=== PATIENT | male | born 1950 | race African-American/Black ===

== ENCOUNTER 2016-10-17 10:32 | Emergency (ER) | payer OTHER ==
[~2016-10-17] VITALS: Ht 172.7 cm; Wt 127.0 kg
[~2016-10-17 10:32] MED LIST: ATENOLOL; CYCL-405 PO; LOSA25TA14 PO; NAPROSYN; PAX20 PO; SUCR1TAB35 PO; [UNRECOGNIZED DRUG - REMARK]
[2016-10-17 11:48] VITALS: BP 137/96
--- NOTE | 2016-10-17 12:11 | NUR ---
PATIENT TO BED 5 AT THIS TIME.
--- NOTE | 2016-10-17 12:22 | NUR ---
PATIENT PRESENTS TO ED WITH C/O SORE THROAT X 3 WKS HARD TO SWALLOW, NO PRODUCTIVE COUGH, FEELS "SWOLLEN TOUNGE";HX OF DM, HTN; DENIES N/V/D; SKIN IS PINK/WARM/DRY; AAOX4 WITH EVEN AND STEADY GAIT; LUNGS CLEAR BL; HR EVEN AND REGULAR; PT DENIES ANY FEVER, CP, SOB, OR COUGH AT THIS TIME; PATIENT STATES PAIN OF 8/10 AT THIS TIME; PATIENT POSITIONED FOR COMFORT; HOB ELEVATED; BEDRAILS UP X2; BED DOWN. ERMD AT BEDSIDE.
[2016-10-17 12:28] VITALS: BP 128/84
--- NOTE | 2016-10-17 12:29 | NUR ---
Patient discharged with v/s stable. Written and verbal after care instructions given and explained. Patient alert, oriented and verbalized understanding of instructions. Ambulatory with steady gait. All questions addressed prior to discharge. ID band removed. Patient advised to follow up with PMD. Rx of LIDOCAINE HYDROCHLORIDRE given. Patient educated on indication of medication including possible reaction and side effects. Opportunity to ask questions provided and answered.
== END 2016-10-17 12:29 | disposition home or self-care (01) ==
LOC: MED 10:32
DX: K12.0 Recurrent oral aphthae (principal); E11.9 Type 2 diabetes mellitus without complications; K21.9 Gastro-esophageal reflux disease without esophagitis; I10 Essential (primary) hypertension
CPT/HCPCS: 99283

== ENCOUNTER 2017-07-16 10:13 | Emergency (ER) | payer BC, MEDICAID ==
[~2017-07-16] VITALS: Ht 172.7 cm; Wt 110.8 kg
[2017-07-16 10:34] VITALS: BP 130/65
--- NOTE | 2017-07-16 10:39 | NUR ---
PT AMBULATES TO CHAIR C
--- NOTE | 2017-07-16 10:45 | NUR ---
67Y/M C/O LT SIDED HEAD ACHE AROUND 0300 THIS MORNING; DENIES DIZZINESS, NVD. PATIENT STATES PAIN OF 9/10 AT THIS TIME; VSS; PATIENT POSITIONED FOR COMFORT; ER MD MADE AWARE OF PT STATUS.
--- NOTE | 2017-07-16 11:00 | NUR ---
Patient being evaluated by physician at bedside.
[2017-07-16] MEDS ORDERED: KETOROLAC 60 MG/2 ML VIAL IM ONE (11:05)
[2017-07-16 11:55] VITALS: BP 124/86
--- NOTE | 2017-07-16 11:57 | NUR ---
Patient discharged with v/s stable. Written and verbal after care instructions given and explained. Patient alert, oriented and verbalized understanding of instructions. Ambulatory with steady gait. All questions addressed prior to discharge. ID band removed. Patient advised to follow up with PMD. Rx of TRAMADOL, MOTRIN given. Patient educated on indication of medication including possible reaction and side effects. Opportunity to ask questions provided and answered.
== END 2017-07-16 11:57 | disposition home or self-care (01) ==
LOC: MED 10:13
DX: R51 Headache (principal); E11.9 Type 2 diabetes mellitus without complications; K21.9 Gastro-esophageal reflux disease without esophagitis; I10 Essential (primary) hypertension
CPT/HCPCS: 70450; 96372; 99284; J1885

== ENCOUNTER 2017-09-18 16:27 | Emergency (ER) | payer MEDICAID, OTHER ==
[~2017-09-18] VITALS: Ht 172.7 cm; Wt 114.1 kg
[2017-09-18 16:33] VITALS: BP 128/89
--- NOTE | 2017-09-18 16:40 | NUR ---
PT AMBULATES TO BED 9, REPORT GIVEN TO KERA CAMILO
--- NOTE | 2017-09-18 16:45 | NUR ---
PT COMES TO ER WITH C/O SUDDEN ONSET OF SHARP PAIN TO LEFT OCCIPTAL AREA OF HEAD WHILE DOING NOTHING, PAIN IS NON RADIATING. PT STATES "I FEEL LIKE FAINTING" ALSO REPORTS INTERMITTENT BLURRY VISION. PT AAOX4, IN NAD. RESP EVEN AND UNLABORED, EATING CRACKERS AND DRINKING JUICE. ASYMPTOMATIC AT THIS TIME. SKIN W/D/I. DENIES INJURY/FEVERS/CHILLS. RESP EVEN AND UNLABORED, ON RA@99%. VSS.
[2017-09-18 17:05] VITALS: BP 128/89
--- NOTE | 2017-09-18 17:06 | NUR ---
Patient discharged with v/s stable. Written and verbal after care instructions given and explained. Patient verbalized understanding. Ambulatory with steady gait. All questions addressed prior to discharge. Advised to follow up with PMD.
== END 2017-09-18 17:06 | disposition home or self-care (01) ==
LOC: MED 16:27
DX: R51 Headache (principal); E11.9 Type 2 diabetes mellitus without complications; K21.9 Gastro-esophageal reflux disease without esophagitis; I10 Essential (primary) hypertension; I25.10 Atherosclerotic heart disease of native coronary artery without angina pectoris; Z79.899 Other long term (current) drug therapy
CPT/HCPCS: 99281

== ENCOUNTER 2019-03-02 14:59 | Emergency (ER) | payer OTHER ==
[~2019-03-02] VITALS: Ht 172.7 cm; Wt 127.0 kg
[~2019-03-02 14:59] MED LIST changes: -LOSA25TA14 PO; +LOSA25TA32 PO
[2019-03-02 15:03] VITALS: BP 157/83
--- NOTE | 2019-03-02 15:11 | NUR ---
PT AMBULATED TO BED 2
--- NOTE | 2019-03-02 15:13 | NUR ---
PATIENT PRESENTS TO ED WITH C/O LEFT HAND PAIN X2-3 MONTHS. DENIES TRAUMA OR INJURY. HURTS WITH MOVEMENT, UNABLE TO MAKE A FIST. PT TAKING HYDROCODONE FOR PAIN. MED HX: HTN, DM, CHRONIC BACK PAIN, HEARING LOSS, PATIENT STATES PAIN OF 10/10 AT THIS TIME; VSS; PATIENT POSITIONED FOR COMFORT; HOB ELEVATED; BEDRAILS UP X2; BED DOWN. ER MD MADE AWARE OF PT STATUS.
--- NOTE | 2019-03-02 16:00 | NUR ---
Patient being evaluated by DR. MARLOW at bedside.
[2019-03-02 16:15] VITALS: BP 142/80
--- NOTE | 2019-03-02 16:15 | NUR ---
Patient discharged BY DR. MARLOW, Written and verbal after care instructions given and explained. Rx of NAPROSYN given. Patient educated on indication of medication including possible reaction and side effects. All questions addressed prior to discharge. ID band removed. Patient advised to follow up with PMD.
== END 2019-03-02 16:15 | disposition home or self-care (01) ==
LOC: MED 14:59
DX: M79.641 Pain in right hand (principal); I25.10 Atherosclerotic heart disease of native coronary artery without angina pectoris; E11.9 Type 2 diabetes mellitus without complications; K21.9 Gastro-esophageal reflux disease without esophagitis; I10 Essential (primary) hypertension; Z79.899 Other long term (current) drug therapy
CPT/HCPCS: 99283

== ENCOUNTER 2020-03-13 13:06 | Emergency (ER) | payer OTHER, SELFPAY ==
[~2020-03-13] VITALS: Ht 172.7 cm; Wt 123.4 kg
[2020-03-13 13:17] VITALS: BP 126/78
--- NOTE | 2020-03-13 13:23 | NUR ---
JILL GARCIAS (DAUGHTER/SON) [phone]
--- NOTE | 2020-03-13 14:26 | NUR ---
Patient taken to xray.
--- NOTE | 2020-03-13 14:26 | NUR ---
Covid swab collected and walked to lab.
[2020-03-13 15:54] VITALS: BP 122/71
== END 2020-03-13 15:54 | disposition home or self-care (01) ==
LOC: MED 13:06
DX: U07.1 COVID-19 (principal); R53.83 Other fatigue; E11.9 Type 2 diabetes mellitus without complications; I10 Essential (primary) hypertension; I51.89 Other ill-defined heart diseases; K21.9 Gastro-esophageal reflux disease without esophagitis; Z79.899 Other long term (current) drug therapy
CPT/HCPCS: 71045; 93005; 99285; U0003

== ENCOUNTER 2020-03-19 20:07 | Emergency (ER) | payer OTHER, SELFPAY ==
[~2020-03-19] VITALS: Ht 170.2 cm; Wt 117.9 kg
[2020-03-19 20:35] VITALS: BP 98/59
--- NOTE | 2020-03-19 20:35 | NUR ---
TO TENT # 2 AMBULATORY
--- NOTE | 2020-03-19 20:35 | NUR ---
SEEN AND EXAMINED BY ABIDA WITH ORDERS AND CARRIED OUT.
--- NOTE | 2020-03-19 21:00 | NUR ---
PER ERMD - CANCEL ALL LAB ORDERS. PT READY FOR DISCHARGE.
[2020-03-19 21:05] VITALS: BP 98/59
--- NOTE | 2020-03-19 21:05 | NUR ---
Patient discharged with v/s stable. Written and verbal after care instructions given and explained. Patient alert, oriented and verbalized understanding of instructions. Ambulatory with steady gait. All questions addressed prior to discharge. ID band removed. Patient advised to follow up with PMD. Rx of PREDNISONE, TESSALON PERLES , COMPAZINE, AZITHROMYCIN given. Patient educated on indication of medication including possible reaction and side effects. Opportunity to ask questions provided and answered.
== END 2020-03-19 21:05 | disposition home or self-care (01) ==
LOC: MED 20:07
DX: U07.1 COVID-19 (principal); I10 Essential (primary) hypertension; E11.9 Type 2 diabetes mellitus without complications
CPT/HCPCS: 36600; 82803; 99283; 99284

== ENCOUNTER 2020-07-30 14:07 | Emergency (ER) | payer OTHER, SELFPAY ==
[~2020-07-30] VITALS: Ht 172.7 cm; Wt 117.9 kg
[~2020-07-30 14:07] MED LIST changes: -CYCL-405 PO; +CYCL-711 PO
[2020-07-30 14:12] VITALS: BP 159/99
[2020-07-30] MEDS ORDERED: TOBR5SOL17 OP (15:27)
[2020-07-30 15:40] VITALS: BP 159/99
== END 2020-07-30 15:40 | disposition home or self-care (01) ==
LOC: MED 14:07
DX: H10.33 Unspecified acute conjunctivitis, bilateral (principal); E11.9 Type 2 diabetes mellitus without complications; K21.9 Gastro-esophageal reflux disease without esophagitis; I11.9 Hypertensive heart disease without heart failure; Z79.899 Other long term (current) drug therapy
CPT/HCPCS: 99283

== ENCOUNTER 2020-08-01 17:48 | Inpatient (IN) | payer OTHER, SELFPAY ==
[~2020-08-01] VITALS: Ht 172.7 cm; Wt 116.6 kg
[~2020-08-01 17:48] MED LIST changes: +TOBR5SOL17 OP
[2020-08-01 17:53] VITALS: BP 155/99
--- NOTE | 2020-08-01 17:57 | NUR ---
70 YEAR OLD MALE BIBA FOR NEAR SYNCOPE EPISODE X PRIOR TO ARRIVAL. PER EMS PT WAS ABOUT TO PASS OUT AT STORE AND HAD TO SIT DOWN. PT DENIES LOC. PT AOX4, BREATHING EVEN AND UNLABORED, SKIN WARM AND DRY. BED IN LOWEST POSITION, SEMI-FOWLERS, LOCKED, BED RAIL UPX1. PMH - DM2 ALLERGIES - NKA
[2020-08-01] MEDS ORDERED: TOBRAMYCIN 0.3% OPTH SOL 5 ML BTL OP STA (18:33)
[2020-08-01 18:36] LABS: BASOPHILS # (AUTO) 0.1 K/uL (0.00-0.22); BASOPHILS % (AUTO) 0.9 % (0.0-2.0); EOSINOPHILS # (AUTO) 0.1 K/uL (0-0.4); EOSINOPHILS % (AUTO) 1.6 % (0.0-4.0); HEMATOCRIT 45.7 % (36-52); HEMOGLOBIN 15.7 g/dL (12.0-18.0); LYMPHOCYTES # (AUTO) 2.9 K/uL (2.0-11.5); LYMPHOCYTES % (AUTO) 41.1 % (20.5-51.1); MEAN CORPUSCULAR HEMOGLOBIN 30 pg (27-31); MEAN CORPUSCULAR HGB CONC 34 g/dL (33-37); MEAN CORPUSCULAR VOLUME 88.4 fL (80-94); MONOCYTES # (AUTO) 0.7 K/uL (0.8-1.0); MONOCYTES % (AUTO) 9.4 % (1.7-9.3); NEUTROPHILS # (AUTO) 3.3 K/uL (1.8-7.7); PLATELET COUNT (AUTO) 210 K/uL (140-450); RED BLOOD CELL COUNT(AUTO) 5.17 MIL/uL (4.20-6.10); RED CELL DISTRIBUTION WIDTH 13.7 % (11.6-13.7)
[2020-08-01 18:56] LABS: ALBUMIN 3.6 g/dL (3.4-5.0); ANION GAP 9.1 (8-16); ASPARTATE AMINOTRANSFERASE 17 U/L (15-37); CARBON DIOXIDE 27.7 mmol/L (21-32); CHLORIDE 107 mmol/L (98-107); CREATININE 0.9 mg/dL (0.6-1.3); GLUCOSE 153 mg/dL (74-106); LIPASE 134 U/L (73-393); POTASSIUM 3.8 mmol/L (3.5-5.1); SODIUM SERUM 140 mmol/L (136-145); TOTAL BILIRUBIN 0.7 mg/dL (0.0-1.0); UREA NITROGEN, BLOOD 13 mg/dL (7-18)
--- NOTE | 2020-08-01 19:16 | NUR ---
PT STATES HE STILL FEELS DIZZINESS, ATTEMPTED TO GET UP BUT WAS UNABLE TO AMBULATE. ERMD MADE AWARE
--- NOTE | 2020-08-01 19:16 | NUR ---
REPORT GIVEN TO RICKEY COTE, TRANSFER OF CARE AT THIS TIME
--- NOTE | 2020-08-01 20:45 | NUR ---
TO CT VIA [facility]
--- NOTE | 2020-08-01 20:59 | NUR ---
PT RETURN FROM CT
--- NOTE | 2020-08-01 21:30 | NUR ---
RECEIVED REPORT FROM RICKEY COTE DAYSHIFT NURSE OVER THE PHONE. PT IS IN STABLE CONDITION.
[2020-08-01 21:45] VITALS: BP 134/58
--- NOTE | 2020-08-01 21:45 | NUR ---
REPORT CALLED TO KERA VALERO
--- NOTE | 2020-08-01 21:56 | NUR ---
TRANSPORT TO [facility]IA [facility], ATTACHED TO CM, ACCOMPANIED BY RN & ERT
[2020-08-01] MEDS ORDERED: ACETAMINOPHEN 325 MG TAB PO PRN (22:00)
[2020-08-01] MEDS ORDERED: ZOLPIDEM 5 MG TAB PO PRN (22:00)
[2020-08-01] MEDS ORDERED: guaiFENesin DM 200/20 MG-10 ML 10 ML UDC PO PRN (22:00)
[2020-08-01] MEDS ORDERED: MECLIZINE 25 MG TAB PO PRN (22:00)
[2020-08-01] MEDS ORDERED: HYDROcodone/APAP 7.5/325 MG 1 TAB PO PRN (22:00)
[2020-08-01] MEDS ORDERED: DOCUSATE SODIUM 100 MG GELCAP PO PRN (22:00)
[2020-08-01] MEDS ORDERED: POTASSIUM CHLORIDE 10 MEQ TABER PO PRN (22:00)
[2020-08-01] MEDS ORDERED: ONDANSETRON 4 MG/2 ML VIAL IM/IVP PRN (22:00)
--- NOTE | 2020-08-01 22:00 | NUR ---
PT ARRIVED ON FLOOR VIA GURNEY AND PT IS STANDBY ASSISTANCE TO WALK FORM GURNEY TO BED. PT AMBULATED WITH UNSTEADY GAIT BUT DID NOT C/O OF DIZZINESS. PT PLACED ON TELEMONITORING. MRSA DONE AND ADMISSION V/S FOLLOWS; T 98.0 P 69 R 17 B/P 134/58 02 96% ON ROOM AIR. PT DENIES ANY PAIN, ULTRA SOUND AT BEDSIDE FOR ORDERED TEST.
[2020-08-01 22:31] LABS: CHOL/HDL RATIO 3.3 (1-4.5); FREE T4 (FREE THYROXINE) 0.93 ng/dL (0.76-1.46); MAGNESIUM 1.8 mg/dL (1.8-2.4); PHOSPHORUS 3.4 mg/dL (2.5-4.9); THYROID STIMULATING HORMONE 0.82 uIU/mL (0.34-3.74)
[2020-08-01] MEDS: NACL 0.9% 1,000 ML IV SCH (23:11)
--- NOTE | 2020-08-02 00:15 | NUR ---
PT IN BED RESTING WITH EYES CLOSED, NO S/S OF PAIN OR DISTRESS NOTED. PT RUNNING NORMAL SALINE AT 120MLS/HR ORDERED VIA 20G ON V/S FOLLOWS: T 97.9 P 76 R 18 B/P 117/63 02 95% ON ROOM AIR. ALL ORDERED PRECAUTIONS IN PLACE.
--- NOTE | 2020-08-02 02:00 | NUR ---
PT ASLEEP IN BED NO S/S OF PAIN OR DISTRESS NOTED. IV SITE ON LF/A INTACT AND RUNNING NORMAL SALINE AT 120. ALL ORDERED PRECAUTIONS IN PLACE.
[2020-08-02 04:00] VITALS: BP 129/73
--- NOTE | 2020-08-02 04:00 | NUR ---
PT IN BED RESTING WITH EYES CLOSED V/S FOLLOWS: T 97.6 P 69 R 17 B/P 129/73 02 97% ON ROOM AIR. ALL FALLS PRECAUTIONS IN PLACE. IV SITE INTACT AND RUNNING N/S AT 120.
--- NOTE | 2020-08-02 06:00 | NUR ---
PT FINGERSTICK IS 128, NO HUMALOG COVERAGE NEEDED ACCORDING TO S/S.
[2020-08-02 06:36] LABS: BASOPHILS % (AUTO) 0.4 % (0.0-2.0); EOSINOPHILS # (AUTO) 0.1 K/uL (0-0.4); EOSINOPHILS % (AUTO) 1.5 % (0.0-4.0); HEMATOCRIT 43.4 % (36-52); HEMOGLOBIN 14.9 g/dL (12.0-18.0); LYMPHOCYTES # (AUTO) 3.4 K/uL (2.0-11.5); LYMPHOCYTES % (AUTO) 38.8 % (20.5-51.1); MEAN CORPUSCULAR HEMOGLOBIN 31 pg (27-31); MEAN CORPUSCULAR HGB CONC 34 g/dL (33-37); MEAN CORPUSCULAR VOLUME 89.5 fL (80-94); MONOCYTES # (AUTO) 0.7 K/uL (0.8-1.0); MONOCYTES % (AUTO) 8.4 % (1.7-9.3); NEUTROPHILS # (AUTO) 4.5 K/uL (1.8-7.7); NEUTROPHILS % (AUTO) 50.9 % (42.2-75.2); PLATELET COUNT (AUTO) 194 K/uL (140-450); RED BLOOD CELL COUNT(AUTO) 4.85 MIL/uL (4.20-6.10); RED CELL DISTRIBUTION WIDTH 13.9 % (11.6-13.7); WHITE BLOOD COUNT (AUTO) 8.8 K/uL (4.8-10.8)
[2020-08-02] MEDS ORDERED: DEXTROSE 50% 50 ML SYR IVP PRN (06:40)
[2020-08-02] MEDS: NACL 0.9% 1,000 ML IV SCH ×3 (06:43→23:00)
[2020-08-02] MEDS: BLOOD GLUCOSE MONITORING 1 DEV DEV FS SCH ×4 (06:43→21:00)
[2020-08-02 06:51] LABS: ANION GAP 10.6 (8-16); CHLORIDE 108 mmol/L (98-107); CREATININE 0.8 mg/dL (0.6-1.3); GLUCOSE 122 mg/dL (74-106); POTASSIUM 3.6 mmol/L (3.5-5.1); SODIUM SERUM 141 mmol/L (136-145); UREA NITROGEN, BLOOD 12 mg/dL (7-18)
--- NOTE | 2020-08-02 07:30 | NUR ---
RECEIVED BEDSIDE REPORT FROM NUCLEAR CARDIOLOGY TECHNOLOGIST NURSE. PT IS AO X3, ABLE TO MAKE NEEDS KNOWN. RESPIRATIONS EVEN AND UNLABORED. NO S/S OF RESPIRATORY DISTRESS NOTED. ON ROOM AIR. SKIN IS WARM AND DRY. IV SITE ON LFA 20 G SALINE LOCK AND LH 22G INFUSING FLUIDS WELL. DENIES PAIN AT THIS TIME. PLAN OF CARE DISCUSSED. SAFETY PRECAUTIONS IN PLACE. CALL LIGHT WITHIN REACH. WILL CONTINUE TO MONITOR.
--- NOTE | 2020-08-02 07:32 | NUR ---
PATIENT HAS BEEN SCREENED AND CATEGORIZED MODERATE NUTRITION RISK. PATIENT WILL BE SEEN WITHIN 3-5 DAYS OF ADMISSION. 08/04/20 - 08/06/20 CHALO DE SANTIAGO MBA, RD
[2020-08-02 08:00] VITALS: BP 146/81
[2020-08-02] MEDS: PANTOPRAZOLE 40 MG TABEC PO SCH (08:35)
[2020-08-02] MEDS: atenoloL 25 MG TAB PO SCH (10:41)
[2020-08-02] MEDS: PARoxetine 20 MG TAB PO SCH (10:42)
--- NOTE | 2020-08-02 10:45 | NUR ---
ALL SCHEDULED MEDS GIVEN. PT IS STABLE. NO DISTRESS NOTED. WILL CONTINUE TO MONITOR.
--- NOTE | 2020-08-02 11:31 | NUR ---
BLOOD GLUCOSE CHECK IS 185. PATIENT REFUSED INSULIN COVERAGE. NOTIFIED MD AND IS AWARE OF THE SITUATION
[2020-08-02 12:00] VITALS: BP 122/58
[2020-08-02] MEDS: INSULIN LISPRO SLIDING SCALE 100 UNITS/ML VIAL SUBQ PRN (12:03)
--- NOTE | 2020-08-02 14:54 | NUR ---
CHECKED ON PATIENT. PATIENT IS ASLEEP. NOTED CHEST RISE AND FALL. WILL CONTINUE TO MONITOR.
[2020-08-02 16:00] VITALS: BP 103/60
[2020-08-02 16:23] LABS: BILIRUBIN,URINE NEGATIVE (NEGATIVE); BLOOD, URINE NEGATIVE (NEGATIVE); COLOR,URINE YELLOW (YELLOW); LEUKOCYTE ESTERASE ,URINE NEGATIVE (NEGATIVE); NITRITE, URINE NEGATIVE (NEGATIVE); UGLUCOSE 3+ (NEGATIVE)
[2020-08-02 17:21] LABS: BARBITURATE, URINE NEGATIVE ng/ml (NEG <=200); BENZODIAZEPINE, URINE NEGATIVE ng/mL (NEG <=200); CANNABINOID, URINE NEGATIVE ng/mL (NEG <=50); COCAINE, URINE NEGATIVE ng/mL (NEG <=300); OPIATE, URINE NEGATIVE ng/mL (NEG <=2000); PHENCYCLIDINE SCREEN,URINE NEGATIVE ng/mL (NEG <=25)
--- NOTE | 2020-08-02 17:23 | NUR ---
BLOOD GLUCOSE CHECK IS 143. NO INSULIN COVERAGE NEEDED.
[2020-08-02 17:25] LABS: APPEARANCE,URINE HAZY (CLEAR); RBC,URINE 0-5 /HPF (0-5); WBC,URINE 0-5 /HPF (0-5); YEAST,URINE Few /HPF (None Seen)
--- NOTE | 2020-08-02 19:28 | NUR ---
ENDORSED TO END TRIMMER NURSE FOR CONTINUITY OF CARE. PT IS STABLE.
--- NOTE | 2020-08-02 19:30 | NUR ---
RECEIVED ENDORSEMENT AT BEDSIDE FOR CONTINUITY OF CARE, PT IN STABLE CONDITION.
[2020-08-02 20:00] VITALS: BP 122/63
--- NOTE | 2020-08-02 20:00 | NUR ---
PT LYING IN BED, HE WAS TURNED, LINENS AND GOWN CHANGED . PT HAS NO C/O OF PAIN AT THIS TIME. PT HAS LEFT F/A 20GUAGE WHICH IS SALINE LOCKED AND A LEFT HAND 22G RUNNING NORMAL SALINE AT 120MLS/HR. PT HAS URINAL AT BED SIDE BUT DUE TO LINENS BEING WET HAS HAD INCONTINENT EPISODES. PT IS ON BEDREST DUE TO GENERALIZED WEAKNESS. PT ALSO HAS SCD'S IN PLACE FOR DVT PREVENTION. HIS RESPIRATIONS ARE EVEN AND UNLABORED ON ROOM AIR AND V/S FOLLOWS: T 97.6 P 67 R 17 B/P 122/63 02 93%. ALL FALLS PREVENTION PROTOCOL IN PLACE.
--- NOTE | 2020-08-02 21:00 | NUR ---
PT FINGERSTICK IS 170, PT DECLINES TO TAKE ORDERED S/S HUMALOG INSULIN. RISKS AND BENEFITS EXPLAINED AT BEDSIDE, HOWEVER PT CONTINUES TO REFUSE TO TAKE ANY SUPPLEMENTAL INSULIN SAYING HE DOESN'T TAKE IT AT HOME. HE WAS GIVEN REQUESTED SNACK AT THIS TIME. PT DENIES ANY PAIN AND ALL FALLS PRECAUTIONS IN PLACE.
--- NOTE | 2020-08-02 22:00 | NUR ---
PT SITTING UP IN BED IV SITE INTACT AND CONTINUES TO RUN N/S AT 120. PT HAS NO S/S OF PAIN OR DISTRESS NOTED. ALL REQUESTED NEEDS ATTENDED BY STAFF AND ALL FALLS PRECAUTIONS IN PLACE.
[2020-08-03] VITALS: BP 122/64
[2020-08-03] MEDS: NACL 0.9% 1,000 ML IV SCH ×3 (00:45→15:40)
--- NOTE | 2020-08-03 01:00 | NUR ---
ROUNDS DONE PT LYING IN BED, ALL REQUESTED NEEDS ATTENDED BY STAFF. NO S/S OF PAIN OR DISTRESS NOTED. ALL UNIVERSAL PRECAUTIONS IN PLACE.
[2020-08-03 04:00] VITALS: BP 133/65
--- NOTE | 2020-08-03 04:00 | NUR ---
PT IN BED RESTING WITH EYES CLOSED BUT AROUSABLE TO NAME AND LIGHT TOUCH. NO C/O VOICED V/S FOLLOWS: T 97.6 P 53 R 16 B/P 133/65 02 96% ON ROOM AIR. ALL ORDERED PRECAUTIONS IN PLACE.
[2020-08-03] MEDS: BLOOD GLUCOSE MONITORING 1 DEV DEV FS SCH ×4 (06:41→20:10)
[2020-08-03 06:46] LABS: BASOPHILS % (AUTO) 0.6 % (0.0-2.0); EOSINOPHILS # (AUTO) 0.2 K/uL (0-0.4); EOSINOPHILS % (AUTO) 2.3 % (0.0-4.0); HEMOGLOBIN 14.7 g/dL (12.0-18.0); LYMPHOCYTES # (AUTO) 3.7 K/uL (2.0-11.5); LYMPHOCYTES % (AUTO) 44.4 % (20.5-51.1); MEAN CORPUSCULAR HEMOGLOBIN 31 pg (27-31); MEAN CORPUSCULAR HGB CONC 35 g/dL (33-37); MEAN CORPUSCULAR VOLUME 89.2 fL (80-94); MONOCYTES # (AUTO) 0.7 K/uL (0.8-1.0); MONOCYTES % (AUTO) 8.5 % (1.7-9.3); NEUTROPHILS # (AUTO) 3.7 K/uL (1.8-7.7); NEUTROPHILS % (AUTO) 44.2 % (42.2-75.2); PLATELET COUNT (AUTO) 194 K/uL (140-450); RED BLOOD CELL COUNT(AUTO) 4.71 MIL/uL (4.20-6.10); RED CELL DISTRIBUTION WIDTH 13.5 % (11.6-13.7); WHITE BLOOD COUNT (AUTO) 8.3 K/uL (4.8-10.8)
[2020-08-03 07:14] LABS: ANION GAP 12.6 (8-16); CARBON DIOXIDE 24.2 mmol/L (21-32); CHLORIDE 107 mmol/L (98-107); CREATININE 0.7 mg/dL (0.6-1.3); GLUCOSE 128 mg/dL (74-106); POTASSIUM 3.8 mmol/L (3.5-5.1); SODIUM SERUM 140 mmol/L (136-145); UREA NITROGEN, BLOOD 10 mg/dL (7-18)
[2020-08-03 08:00] VITALS: BP 120/66
[2020-08-03] MEDS: PANTOPRAZOLE 40 MG TABEC PO SCH (08:49)
[2020-08-03] MEDS: PARoxetine 20 MG TAB PO SCH (08:49)
[2020-08-03] MEDS: LOSARTAN 25 MG TAB PO SCH (08:49)
[2020-08-03] MEDS: CYCLOBENZAPRINE 10 MG TAB PO SCH (08:50)
[2020-08-03] MEDS: atenoloL 25 MG TAB PO SCH (08:50)
--- NOTE | 2020-08-03 08:56 | NUR ---
ADMINISTERED PRESCRIBED MEDS PER MD ORDER. PATIENT TOLERATED WELL. MEDICATION EDUCATION PROVIDED. PATIENT VERBALIZED UNDERSTANDING. SAFETY MEASURES IN PLACE. WILL CONTINUE TO MONITOR.
--- NOTE | 2020-08-03 10:45 | NUR ---
DC PLANNIN YRS OLD MALE PATIENT WAS ADMITTED FROM HOME WITH A DX OF SYNCOPE , GENERALIZE WEAKNESS . PT HAS A HX OF DM AND HTN. CXR SHOWED NO ACUTE CARDIOPULMONARY DISEASE. RAPID COVID TEST NEGATIVE. CAROTID ARTERY NEGATIVE FOR STENOSIS. ADMINISTERED IVF, AND CONTINUED HOME MEDS. CONSULTED WITH ASSISTANT OPERATOR AND NEURO. CM TO FOLLOW Addendum: 08/03/20 at 1055 by Bessy Kaiser RN DC PLANNING: CALLED [facility] SPOKE WITH D[place], NOTIFIED HIM THAT PT IS STABLE FOR TRANSFER TO CONTRACTED FACILITY FOR MRI OF THE BRAIN AND FURTHER WORK UP. FAXED ALL THE PAPERWORK TO [phone]. CM TO FOLLOW Addendum: 08/03/20 at 1217 by Bessy Kaiser RN DC PLANNING: CALLED [facility] SPOKE WITH D[place]AS STATED HE HASN'T CHECK THE FAX YET ONCE HE REVIEW WILL CALL BACK. CM TO FOLLOW. Addendum: 08/03/20 at 1338 by Bessy Kaiser RN DC PLANNING: [facility] SPOKE WITH D[place]AS STATED HIS DR TALKED TO DR FORBES AND PER DR FORBES CONSULTED NEURO. PER DALLAS THEY HAVE TO HAVE NURO CONSULT NOTES TO REVIEW THE CASE, I INFORMED HIM THAT OUR NEUROLOGIST MIGHT COME AFTER HOURS , PER DALLAS STATED TO ACCEPT PT HAS TO HAVE NEURO CONSULT. CM TO FOLLOW Addendum: 08/03/20 at 1346 by Haydee Garcia CM DC DIOR: FAXED NEURO CONSULT TO [facility] WILL FOLLOW UP Addendum: 08/03/20 at 1548 by Haydee Garcia CM RAO RADER: FOLLOWED UP WITH [facility] AND SPOKE TO OSWALDO IN THE TRANSFER CENTER [phone] HE IS WAITING ON AN ACCEPTING DOCTOR AND BED NUMBER. PROVIDED HIM WITH THE NUMBER FOR THE NURSES STATION. Addendum: 08/03/20 at 1619 by Haydee Garcia CM RAO RADER RECEIVED A PHONE CALL FROM THE MD THEY ARE REQUESTING A PCR. NOTIFIED OSMIN Addendum: 08/03/20 at 1630 by Haydee Garcia CM RAO RADER: FAXED ORDER FOR MRI TO [facility]. SPOKE TO IVONNE IN RADIOLOGY [phone] SHE STATED THAT KENNETH HOWELL WOULD HAVE TO CONTACT THEM. Addendum: 08/03/20 at 1631 by Haydee Garcia CM RAO RADER: NOTIFIED KENNETH ROSALES Addendum: 08/04/20 at 0927 by Haydee Garcia CM RAO CARDING MACHINE OPERATOR: PATIENT WILL HAVE AN MRI DONE AT [facility] TODAY AT 12:30 PM. ARRANGED WAIT AND RETURN WITH [facility] [phone] VEHICLE MECHANIC TIME IS 11:40 AM. SHANI WILL NEED A VOUCHER Addendum: 08/04/20 at 1000 by Haydee Garcia CM DC CARDING MACHINE OPERATOR: PATIENT WILL NOW GO TO [facility] FOR THE MRI VEHICLE MECHANIC TIME FOR MRI BY SHANI IS 1:15 Addendum: 08/04/20 at 1031 by Bessy Kaiser RN DC PLANNING: RECEIVED A CALL FROM [facility] SPOKE WITH DALLAS STATED NEEDS PCR RESULT, I NOTIFIED HIM THE PCR TAKES 24 HOURS OR MORE AND PT NEEDED MRI OF THE BRAIN TO BE DONE, PER DALLAS HE CHECKED IF THERE IS A PUI ROOM TO TAKE PATIENT BUT, NO PUI ROOM AND STATED GO HEAD DO THE MRI AND ONCE WE HAVE THE PCR RESULT TO CALL HIM. MRI OF THE BRAIN IS SCHEDULE AT [facility] AT 2 PM AND RETURN BACK TO [facility]. CM TO FOLLOW. Addendum: 08/05/20 at 0825 by Bessy Kaiser RN DC PLANNING: CALLED [facility] [phone] SPOKE WITH DALLAS, STATED HE RECEIVED THE PCR RESULT AND REQUESTING BED, HOWEVER HE MENTIONED THAT THEY ARE SHORT OF STAFF. FAXED THE MRI RESULT, ONCE HE HAS THE BED WILL CALL [facility]. CM TO FOLLOW Addendum: 08/05/20 at 1211 by Bessy Kaiser RN DC PLANNING: RECEIVED A CALL FROM [facility] SPOKE WITH D[place], STATED REFER TO NEURO UNIT AND NEUROLOGIST REQUESTING PER TO PEER PROVIDE DR GUSTAFSON'S CELL PHONE. CM TO FOLLOW Addendum: 08/05/20 at 1250 by Bessy Kaiser RN DC PLANNING: RECEIVED A CALL FROM [facility] SPOKE WITH DALLAS, STATED PT IS GOING TO [facility] ARRANGED TRANSPORT ETA 1330 NUMBER TO GIVE REPORT [phone] NOTIFIED AMINATA DAVID. Addendum: 08/05/20 at 1351 by Bessy Kaiser RN DC PLANNING: [facility] ACCEPTING DR RUTH VALENZUELA.
[2020-08-03] MEDS: ATORVASTATIN 80 MG TAB PO SCH (11:00)
--- NOTE | 2020-08-03 11:04 | NUR ---
ADMINISTERED PRESCRIBED MEDS PER MD ORDER. PATIENT TOLERATED WELL. MEDICATION EDUCATION PROVIDED. PATIENT VERBALIZED UNDERSTANDING. PATIENT SEEN BY PT, DISPLAYING NEW ONSET LEFT SIDE WEAKNESS. PATIENT UNABLE TO LIFT LEFT ARM UP; ABLE TO LIFT LEFT LEG UP AND WIGGLE TOES. PATIENT DISPLAYS SOME FACIAL DROOPING W/ SMILE VISIBLE ON RIGHT SIDE ONLY. PATIENT DENIES PAIN, MD NOTIFIED. NEURO CONSULT ORDERED BY MD.
[2020-08-03 12:00] VITALS: BP 133/71
--- NOTE | 2020-08-03 12:54 | NUR ---
SOCIAL WORK NOTE: Patient's Orientation Person Situation Place Time Information Provided By PATIENT Comments SW MET PATIENT AT BEDSIDE TO COMPLETE ASSESSMENT. Automatic Chief, Realtionship and Phone Number JILL WORRELL [phone] [facility] Power of Frit Burner No Does Patient Have a POLST No Identifying Problems No Social Work Triggers Is A Social Work Consult Needed No Mandate Report Filed No Explanation Of Identifying Problems PATIENT IS A 70-YEAR-OLD MALE ADMITTED FOR SYNCOPE. PATIENT HAS PMHX OF HYPERTENSION AND DIABETES. Admitted From Home Pre-Admission Level Of Functioning Status Independent/Ambulatory Level Of Functioning Comment PATIENT STATED HE IS INDEPENDENT WITH ADLS AT BASELINE. Prior Resources/Services Used In Last 12 Months No Prior Resources Used Prior DME No Prior DME Used Dialysis Comments N/A Living Situation Apartment Lives With Family Patient Had Caregiver No Home Support No Caregiver Issues Financial Issues No Known Financial Issue Referral To The Financial Counselor Needed No Factors/Needs No D/C Needs Identified Pt/Rep Participated In Discharge Plan Yes Patient/Family Agress With Discharge Plan Yes Discharge Plan Comments TENTATIVE DISCHARGE PLAN IS FOR PATIENT TO RETURN HOME. DC Plan Status Initiated
--- NOTE | 2020-08-03 13:00 | NUR ---
PATIENT ROUNDING PERFORMED. PATIENT STILL UNABLE TO MOVE LEFT ARM AND SLIGHT FACIAL DROOPING ON LEFT NOTED. PATIENT DENIES PAIN. ADVISED PATIENT OF PLAN PER MD, WILL CONTINUE TO KEEP PATIENT UPDATED W/ FURTHER DIAGNOSTICS.
[2020-08-03] MEDS ORDERED: ASPI-1205 PO (13:33)
[2020-08-03] MEDS ORDERED: LIP80 PO (13:33)
[2020-08-03] MEDS: ASPIRIN 325 MG TABEC PO SCH (14:14)
[2020-08-03 16:00] VITALS: BP 133/77
--- NOTE | 2020-08-03 16:00 | NUR ---
PATIENT COMPLETED MRI CHECKLIST, SIGNED AND PLACED IN CHART.
--- NOTE | 2020-08-03 17:01 | NUR ---
Spoke to Spencer at [facility] Radiology department to arrange patient to go for MRI. Spencer stated that he needs the screening form for the MRI faxed to him at [phone]. Form was faxed. Spencer called back and said there is no nurse available to stay with the patient during MRI, and he will check if the certified pharmacy technician is available to do MRI tonight. Spencer will update us.
--- NOTE | 2020-08-03 18:00 | NUR ---
PATIENT ROUNDING PERFORMED. PATIENT SITTING UPRIGHT IN BED, DINNER TRAY DELIVERED AND AT BEDSIDE, PATIENT EATING DINNER W/ NO CONCERNS. PATIENT DENIES PAIN, IN OVERALL GOOD MOOD. SAFETY MEASURES IN PLACE. WILL CONTINUE TO MONITOR.
--- NOTE | 2020-08-03 19:13 | NUR ---
BEDSIDE REPORT PROVIDED TO NIGHTSHIFT NURSE FOR CONTINUITY OF CARE.
--- NOTE | 2020-08-03 19:20 | NUR ---
RECEIVED PT IN STABLE CONDITION FROM AM NURSE. ON TOBACCO PACKER. ASLEEP BUT AROUSE WHEN NAME CALLED. NO S/S OF ANY DISCOMFORT NOR PAIN NOTED. IVF INFUSING WELL ON THE LT AC G#20. BEDREST. WITH LEFT SIDE WEAKNESS. BUT ABLE TO COMMUNICATE WELL. NO SPEECH DIFFICULTY NOTED. PLAN OF CARE DISCUSSED AND VERBALIZED UNDERSTANDING. BED ON LOWEST POSITION. SIDE RAILS UP X2. CALL LIGHT WITHIN EASY REACH. WILL CONTINUE TO MONITOR.M
--- NOTE | 2020-08-03 20:10 | NUR ---
BLOOD SUGAR WAS CHECKED RESULT 144. NO INSULIN COVERAGE NEEDED. AND PROVIDED WITH SOME SNACK. WILL CONTINUE TO MONITOR.
[2020-08-03 20:11] VITALS: BP 140/75
--- NOTE | 2020-08-03 21:30 | NUR ---
TIAGO,DAUGHTER JUST CALLED , ASKED FOR SOME UPDATE ON PT. SHE WANTS TO BE CALLED WHEN PT IS GOING FOR MRI AND WILL BE READY FOR TRANSFER TO [place] , [facility].
[2020-08-04] VITALS: BP 132/76
--- NOTE | 2020-08-04 00:20 | NUR ---
MADE ROUNDS. PT AWAKE. NO C/O ANY DISCOMFORT /PAIN NOTED. VITAL SIGNS TAKNE AND STABLE.
[2020-08-04] MEDS: NACL 0.9% 1,000 ML IV SCH ×3 (00:57→09:40)
--- NOTE | 2020-08-04 01:14 | NUR ---
CHECKED ON PT. AWAKE. NO C/O ANY DISCOMFORT/NOR PAIN NOTED.
--- NOTE | 2020-08-04 03:10 | NUR ---
CHECKED ON PT . ASLEEP. SB ON THE TELE MONITOR BUT NO S/S OF ANY DISTRESS NOR ANY DISCOMFORT NOTED.
[2020-08-04 04:00] VITALS: BP 137/69
[2020-08-04] MEDS: BLOOD GLUCOSE MONITORING 1 DEV DEV FS SCH ×4 (06:00→20:25)
--- NOTE | 2020-08-04 06:00 | NUR ---
BLOOD SUGAR THIS AM RESULT 133. NO INSULIN NEEDED.
[2020-08-04 06:40] LABS: CARBON DIOXIDE 23.7 mmol/L (21-32); CHLORIDE 108 mmol/L (98-107); CREATININE 0.8 mg/dL (0.6-1.3); GLUCOSE 143 mg/dL (74-106); POTASSIUM 3.7 mmol/L (3.5-5.1); SODIUM SERUM 140 mmol/L (136-145); UREA NITROGEN, BLOOD 11 mg/dL (7-18)
[2020-08-04 06:42] LABS: BASOPHILS # (AUTO) 0.1 K/uL (0.00-0.22); BASOPHILS % (AUTO) 0.6 % (0.0-2.0); EOSINOPHILS # (AUTO) 0.2 K/uL (0-0.4); EOSINOPHILS % (AUTO) 2.8 % (0.0-4.0); HEMATOCRIT 42.6 % (36-52); HEMOGLOBIN 14.6 g/dL (12.0-18.0); LYMPHOCYTES # (AUTO) 3.6 K/uL (2.0-11.5); LYMPHOCYTES % (AUTO) 42.7 % (20.5-51.1); MEAN CORPUSCULAR HEMOGLOBIN 30 pg (27-31); MEAN CORPUSCULAR HGB CONC 34 g/dL (33-37); MEAN CORPUSCULAR VOLUME 88.6 fL (80-94); MONOCYTES # (AUTO) 0.8 K/uL (0.8-1.0); NEUTROPHILS # (AUTO) 3.7 K/uL (1.8-7.7); NEUTROPHILS % (AUTO) 43.9 % (42.2-75.2); PLATELET COUNT (AUTO) 179 K/uL (140-450); RED CELL DISTRIBUTION WIDTH 13.8 % (11.6-13.7); WHITE BLOOD COUNT (AUTO) 8.5 K/uL (4.8-10.8)
--- NOTE | 2020-08-04 07:21 | NUR ---
ENDORSED PT IN STABLE CONDITION TO AM NURSE FOR CONTINUITY OF CARE.
--- NOTE | 2020-08-04 07:25 | NUR ---
RECEIVED PT FROM BOMB LOADER NURSEALEXANDRA, PT IS AWAKE AND ON ISOLATION FOR PENDING PCR TEST, SIDE RAILS UP AND CALL LIGHT WITHIN REACH, IV LINE NOTED ON THE LAC G. 20 WITH NS AT 120ML/HR, INTACT, PT ON RA, PT ON BEDREST AND NO SIGN OF DISTRESS NOTED. WILL CONTINUE TO BE MONITORED.
[2020-08-04 08:00] VITALS: BP 130/62
[2020-08-04] MEDS: atenoloL 25 MG TAB PO SCH ×2 (09:00→09:29)
--- NOTE | 2020-08-04 09:20 | NUR ---
ROUTINE MEDICATION GIVEN PER MD ORDERED .HOLD TENORMIN 25 MG DUE TO PULSE 59 . PATIENT TOLERATED WELL TO ORAL AND SBQ MEDS.
[2020-08-04] MEDS: CYCLOBENZAPRINE 10 MG TAB PO SCH (09:28)
[2020-08-04] MEDS: ATORVASTATIN 80 MG TAB PO SCH (09:28)
[2020-08-04] MEDS: LOSARTAN 25 MG TAB PO SCH (09:29)
[2020-08-04] MEDS: PANTOPRAZOLE 40 MG TABEC PO SCH (09:29)
[2020-08-04] MEDS: PARoxetine 20 MG TAB PO SCH (09:29)
[2020-08-04] MEDS: ASPIRIN 325 MG TABEC PO SCH (10:09)
--- NOTE | 2020-08-04 11:32 | NUR ---
PT'S BLOOD GLUCOSE IS 167, WILL GIVE INSULIN COVERAGE.
[2020-08-04] MEDS: INSULIN LISPRO SLIDING SCALE 100 UNITS/ML VIAL SUBQ PRN (11:37)
--- NOTE | 2020-08-04 11:37 | NUR ---
PT REFUSED TO GET THE 2 UNITS INSULIN COVERAGE FOR BLOOD GLUCOSE OF 167. WILL CONTINUE TO MONITOR PT.
[2020-08-04 12:00] VITALS: BP 117/66
--- NOTE | 2020-08-04 12:16 | NUR ---
ECHOCARDIOGRAM WAS FINISHED NOW.
--- NOTE | 2020-08-04 14:49 | NUR ---
PT IS OFF THE UNIT NOW FOR A MRI IN [facility].
[2020-08-04 16:00] VITALS: BP 106/86
--- NOTE | 2020-08-04 16:30 | NUR ---
PT IS BACK TO THE UNIT FROM AN MRI IN [facility], V/S STABLE.
--- NOTE | 2020-08-04 16:38 | NUR ---
BLOOD GLUCOSE CHECK DONE TO PT AND IS 141, NO INSULIN COVERAGE NEEDED.
--- NOTE | 2020-08-04 17:15 | NUR ---
PT'S IV LINE WAS CHECKED FOR PATENCY AND WAS REINFORCED WITH ANOTHER DRESSING.
--- NOTE | 2020-08-04 17:22 | NUR ---
DR. FORBES WAS INFORMED OF THE PT'S MRI RESULT AND DR. JOAQUIN WAS CALLED BUT CANNOT LEAVE MESSAGE IN VOICEMAIL SO RESULT OF MRI WAS SENT THRU TEXT, DR. FORBES WAS INFORMED.
--- NOTE | 2020-08-04 19:10 | NUR ---
ENDORSED PT TO NIGHT SIFT NURSE FOR CONTINUITY OF CARE.
--- NOTE | 2020-08-04 19:14 | NUR ---
RECEIVED PT IN STABLE CONDITION FROM AM NURSE. PT IS AWAKE,ALERT AND ORIENTED X4. ON TELE MONITOR. BEDREST. WITH LT SIDED WEAKNESS. IVF INFUSING WELL ON THE LT AC G#20. CLEAR AND PATENT. WILL WAIT FOR DR. JOAQUIN CALL BACK. PLAN OF CARE DISCUSSED AND VERBALIZED UNDERSTANDING. BED ON LOWEST POSITION. FREQ ROUNDS NEEDED. SIDE RAILS UP X2. CALL LIGHT AND URINAL PLACED WITHIN REACH. WILL CONTINUE TO MONITOR.
[2020-08-04 20:00] VITALS: BP 129/68
--- NOTE | 2020-08-04 21:35 | NUR ---
TRIED TO RELAY RESULT OF MRI TO DR. JOAQUIN THROUGH THE CELL PHONE BUT NO ANSWER. CALLED EXCHANGE . CALLED BACK AND ABLE TO RELAYED TO HIM THE RESULT OF MRI. NO NEW ORDER MADE.
--- NOTE | 2020-08-04 23:26 | NUR ---
RESULT OF PCR CAME BACK NEGATIVE.FAXED RESULT TO [place] SUPERVIS[facility] [place] LAWRENCE #[phone] ALSO CALLED #[phone] AND LEFT MESSAGE.
[2020-08-05] VITALS: BP 140/74
--- NOTE | 2020-08-05 | NUR ---
PT DIDN'T EAT THE PROVIDED HS DM SNACK FROM [facility]. REQUESTED FOR SOME SANDWICH. PROVIDED. TOLERATED WELL.
[2020-08-05] MEDS: NACL 0.9% 1,000 ML IV SCH ×3 (00:59→09:42)
--- NOTE | 2020-08-05 02:00 | NUR ---
CHECKED ON PT. SLEEPING WELL AT THIS TIME. NO S/S FO ANY DISTRESS NOTED.
[2020-08-05 04:00] VITALS: BP 126/59
[2020-08-05] MEDS: BLOOD GLUCOSE MONITORING 1 DEV DEV FS SCH ×2 (06:13→12:05)
--- NOTE | 2020-08-05 06:13 | NUR ---
BLOOD SUGAR WAS CHECKED THIS AM RESULT 153. PT REFUSED TO GET HUMALOG 2 UNITS SUBQ COVERAGE.
[2020-08-05 06:29] LABS: BASOPHILS % (AUTO) 0.4 % (0.0-2.0); EOSINOPHILS # (AUTO) 0.2 K/uL (0-0.4); HEMATOCRIT 45.2 % (36-52); HEMOGLOBIN 15.3 g/dL (12.0-18.0); LYMPHOCYTES % (AUTO) 24.3 % (20.5-51.1); MEAN CORPUSCULAR HEMOGLOBIN 30 pg (27-31); MEAN CORPUSCULAR HGB CONC 34 g/dL (33-37); MEAN CORPUSCULAR VOLUME 90.1 fL (80-94); MONOCYTES # (AUTO) 0.7 K/uL (0.8-1.0); MONOCYTES % (AUTO) 8.8 % (1.7-9.3); NEUTROPHILS # (AUTO) 5.3 K/uL (1.8-7.7); NEUTROPHILS % (AUTO) 64.5 % (42.2-75.2); PLATELET COUNT (AUTO) 181 K/uL (140-450); RED BLOOD CELL COUNT(AUTO) 5.02 MIL/uL (4.20-6.10); RED CELL DISTRIBUTION WIDTH 13.6 % (11.6-13.7); WHITE BLOOD COUNT (AUTO) 8.3 K/uL (4.8-10.8)
[2020-08-05 06:33] LABS: ANION GAP 8.3 (8-16); CARBON DIOXIDE 28.7 mmol/L (21-32); CHLORIDE 107 mmol/L (98-107); CREATININE 0.9 mg/dL (0.6-1.3); GLUCOSE 152 mg/dL (74-106); SODIUM SERUM 140 mmol/L (136-145); UREA NITROGEN, BLOOD 12 mg/dL (7-18)
--- NOTE | 2020-08-05 07:25 | NUR ---
ENDORSED PT IN STABLE CONDITION TO AM NURSE FOR CONTINUITY OF CARE.
--- NOTE | 2020-08-05 07:30 | NUR ---
RECEIVED BEDSIDE ENDORSEMENT FROM NIGHTSNHFT NURSE FOR CONTINUITY OF CARE.
[2020-08-05 08:00] VITALS: BP 151/96
--- NOTE | 2020-08-05 09:41 | NUR ---
ADMINISTERED PRESCRIBED MEDS PER MD ORDER. PATIENT TOLERATED WELL. MEDICATION EDUCATION REINFORCEMENT NEEDED. PATIENT AOx2. SAFETY MEASURES IN PLACE. WILL CONTINUE TO MONITOR.
[2020-08-05] MEDS: LOSARTAN 25 MG TAB PO SCH (09:42)
[2020-08-05] MEDS: ATORVASTATIN 80 MG TAB PO SCH (09:42)
[2020-08-05] MEDS: PANTOPRAZOLE 40 MG TABEC PO SCH (09:42)
[2020-08-05] MEDS: CYCLOBENZAPRINE 10 MG TAB PO SCH (09:42)
[2020-08-05] MEDS: ASPIRIN 325 MG TABEC PO SCH (09:42)
[2020-08-05] MEDS: PARoxetine 20 MG TAB PO SCH (09:42)
[2020-08-05] MEDS: atenoloL 25 MG TAB PO SCH (09:42)
--- NOTE | 2020-08-05 11:07 | NUR ---
PATIENT UNABLE TO MOVE LEFT LEG, PREVIOUSLY ABLE TO LIFT UP INDEPENDENTLY. PATIENT DISPLAYING DECREASED ORIENTATION AND INCREASED RESPIRATION RATE. NOTIFIED MD. PENDING MD ORDERS FOR CHEST XR AND HEAD CT. PATIENT DENIES PAIN/SOB. SAFETY MEASURES IN PLACE. WILL CONTINUE TO MONITOR.
--- NOTE | 2020-08-05 11:32 | NUR ---
PATIENT PICKED UP BY RADIOLOGY.
--- NOTE | 2020-08-05 11:45 | NUR ---
PATIENT RETURNED FROM RADIOLOGY, PLACED PATIENT BACK ON IVF. PATIENT AWAKE AND ALERT. SAFETY MEASURES IN PLACE. WILL CONTINUE TO MONITOR.
--- NOTE | 2020-08-05 12:05 | NUR ---
PATIENT TEMPERATURE 101.7, ADMINISTERED PRN FEVER PER MD ORDERED. PATIENT TOLERATED WELL, MEDICATION EDUCATION PROVIDED, PATIENT VERBALIZED UNDERSTANDING. PATIENT APPEARS SLIGHTLY CONFUSED, AOx2. SPO2 MONITOR ON, PATIENT AWAKENS TO NAME, DENIES PAIN, DENIES SOB. SAFETY MEASURES IN PLACE. WILL CONTINUE TO MONITOR.
[2020-08-05 13:20] VITALS: BP 144/96
--- NOTE | 2020-08-05 13:30 | NUR ---
PATIENT TEMPERATURE 99.4 AFTER TYLENOL AND COOLING MEASURES. PATIENT PICKED UP BY [facility] FOR TRANSPORT TO [facility]. REPORT GIVEN TO [facility] NURSE ALFONSO AND [place] NURSE SHARI. PATIENT LEFT W/ LFA 20G IV PER TRANSPORT NURSE OK. PATIENT GATHERINGS PLACED IN PATIENT BAG. PATIENT SON BALDOMERO VERIFIED TRANSFER CONSENT. PATIENT IS STABLE.
== END 2020-08-05 14:08 | DRG 65 ==
LOC: MED 17:48 → MTU 20:28
PROVIDERS: ADMIT Family Medicine; ATTEND Family Medicine
DX: I63.9 Cerebral infarction, unspecified (principal); G81.94 Hemiplegia, unspecified affecting left nondominant side; G90.8 Other disorders of autonomic nervous system; I10 Essential (primary) hypertension; E11.9 Type 2 diabetes mellitus without complications; E66.3 Overweight; Z68.39 Body mass index [BMI] 39.0-39.9, adult; E78.5 Hyperlipidemia, unspecified; Z20.822 Contact with and (suspected) exposure to COVID-19
CPT/HCPCS: 36415; 70450; 71045; 80048; 80053; 80305; 81001; 82140; 82150; 82948; 83036; 83690; 83735; 83880; 84100; 84436; 84439; 84443; 84479; 84484; 85025; 85610; 85730; 87081; 93005; 93880; 97110; 97112; 97163-GP; 97530; 99285; J1644; J7030; U0003

== ENCOUNTER 2022-03-19 19:42 | Emergency (ER) | payer OTHER ==
[~2022-03-19] VITALS: Ht 172.7 cm; Wt 90.7 kg
[~2022-03-19 19:42] MED LIST changes: +ASPI-1205 PO; +LIP80 PO
--- NOTE | 2022-03-19 19:44 | NUR ---
BIBA TO BED #9
[2022-03-19 19:45] VITALS: BP 147/93
--- NOTE | 2022-03-19 19:45 | NUR ---
DONNA FROM HOME WITH C/O BLE PAIN X SEVERAL MONTHS, WORSE TODAY. PT IS WITH H/O OF STROKE, DM, HTN. PT IS AWAKE AND ALERT. PT STATES HE IS WAITING TO RETURN TO [place] FOR PHYSICAL THERAPY.
--- NOTE | 2022-03-19 20:39 | NUR ---
pt going to CT
--- NOTE | 2022-03-19 20:49 | NUR ---
PT. BACK FROM CT.
[2022-03-19 21:14] LABS: BASOPHILS # (AUTO) 0.1 K/uL (0.00-0.22); BASOPHILS % (AUTO) 0.8 % (0.0-2.0); EOSINOPHILS # (AUTO) 0.2 K/uL (0-0.4); HEMATOCRIT 46.5 % (36-52); HEMOGLOBIN 15.8 g/dL (12.0-18.0); LYMPHOCYTES # (AUTO) 1.8 K/uL (2.0-11.5); LYMPHOCYTES % (AUTO) 27.5 % (20.5-51.1); MEAN CORPUSCULAR HEMOGLOBIN 30 pg (27-31); MEAN CORPUSCULAR HGB CONC 34 g/dL (33-37); MEAN CORPUSCULAR VOLUME 89.1 fL (80-94); MONOCYTES # (AUTO) 0.7 K/uL (0.8-1.0); NEUTROPHILS # (AUTO) 3.9 K/uL (1.8-7.7); NEUTROPHILS % (AUTO) 58.7 % (42.2-75.2); PLATELET COUNT (AUTO) 209 K/uL (140-450); RED BLOOD CELL COUNT(AUTO) 5.22 MIL/uL (4.20-6.10); RED CELL DISTRIBUTION WIDTH 13.9 % (11.6-13.7); WHITE BLOOD COUNT (AUTO) 6.6 K/uL (4.8-10.8)
[2022-03-19 21:50] LABS: ALBUMIN 3.3 g/dL (3.4-5.0); ANION GAP 12.4 (8-16); ASPARTATE AMINOTRANSFERASE 30 U/L (15-37); CARBON DIOXIDE 30.5 mmol/L (21-32); CHLORIDE 103 mmol/L (98-107); CREATININE 0.8 mg/dL (0.6-1.3); GLUCOSE 118 mg/dL (74-106); POTASSIUM 3.9 mmol/L (3.5-5.1); SODIUM SERUM 142 mmol/L (136-145); UREA NITROGEN, BLOOD 12 mg/dL (7-18)
--- NOTE | 2022-03-19 22:00 | NUR ---
Patient appears to be resting comfortably in bed. Vital Signs within normal limits. Respirations even and unlabored.
[2022-03-19] MEDS ORDERED: IBUP-2213 PO (22:02)
[2022-03-19] MEDS ORDERED: ACETAMINOPHEN EXTRA STRENGTH 500 MG TAB PO ONE (22:05)
[2022-03-20] MEDS ORDERED: ONDANSETRON 4 MG/2 ML VIAL IVP ONE (00:55)
[2022-03-20] MEDS ORDERED: MORPHINE SULFATE 4 MG/ML SYR IVP ONE (00:55)
--- NOTE | 2022-03-20 01:00 | NUR ---
AWAKE, C/O BLE PAIN, MEDICATED ORDERED
--- NOTE | 2022-03-20 04:00 | NUR ---
PT AWAKE AND CALLING OUT SAYING HE [facility], BECOMES ANGRY.
--- NOTE | 2022-03-20 04:00 | NUR ---
Karina chan in [facility] - 03/20/22 at 0651 by JOSE DANIEL PTY
[2022-03-20] MEDS ORDERED: KETOROLAC 30 MG/ML VIAL IVP ONE (05:00)
--- NOTE | 2022-03-20 06:50 | NUR ---
PT [facility] SPO[facility] WITH [facility] . WHEN ASKED NOW, PT DENIES SUICIDAL THOUGHTS OR WISHING TO HARM HIMSELF
[2022-03-20 07:00] VITALS: BP 157/82
--- NOTE | 2022-03-20 07:20 | NUR ---
RECIEVED REPORT FROM RICKEY COTE, TRANSFER OF CARE AT THIS TIME, RECEIVED REPORT FROM OUTGOING NURSE OF PT STATING THAT "HE IS SUICIDAL AND I WANT TO [facility]", BUT DENIES HI/SI AND DR DODD MADE AWARE. UPON ASSESSMENT, PT AT THIS TIME DENIES ANY SI/HI,DR PENNY MADE AWARE. A/OX4, SEEN DRINKING WATER AT THIS TIME. RESTING COMFORTABLY IN BED, RESPIRATIONS EVEN AND UNLABORED
--- NOTE | 2022-03-20 08:30 | NUR ---
PT STATES THAT "HE WANTS TO [facility] TO [facility] [place] [facility] PHYSICAL THERAPY", WHEN ASKED HOW HE IS GOING THERE PT STATED THAT HE NEEDS TO BE TRANSPORTED VIA AMBULANCE. PT ASKING TO SPEAK TO THE [employer]/CASE MGT AND THE DOCTOR, DR PENNY MADE AWARE OF PT REQUEST. DR PENNY STATED THAT WE CANNOT TRANSPORT THE PATIENT VIA AMBULANCE IMMEDIATELY THIS IS NOT AN EMERGENT NEED. PT WAS ASKED IF THERE WAS ANYONE WHO COULD PICK HIM UP TO BE TRANSPORTED. PT STATED THAT HIS IS UNABLE TO PICK PT UP AND IS UNABLE TO BRING WC TO THE CAR. CHARGE NURSE MADE AWARE
--- NOTE | 2022-03-20 09:09 | NUR ---
POOL CLEANER MADE AWARE OF PT REQUEST, POOL CLEANER AT BEDSIDE SPEAKING TO PT
[2022-03-20] MEDS ORDERED: TOBRAMYCIN 0.3% OPTH SOL 5 ML BTL OP STA (09:40)
--- NOTE | 2022-03-20 16:00 | NUR ---
Patient discharged with v/s stable. Written and verbal after care instructions FOR GENERAL HEADACHE given and explained. Patient alert, oriented and verbalized understanding of instructions. WHEELCHAIR ASSISTED TO CAR. All questions addressed prior to discharge. ID band removed. Patient advised to follow up with PMD. Rx of IBUPROFEN given. Opportunity to ask questions provided and answered.
== END 2022-03-20 16:00 | disposition home or self-care (01) ==
LOC: MED 19:42
DX: R51.9 Headache, unspecified (principal); R25.2 Cramp and spasm; E11.9 Type 2 diabetes mellitus without complications; I10 Essential (primary) hypertension; Z79.899 Other long term (current) drug therapy; Z79.82 Long term (current) use of aspirin
CPT/HCPCS: 36415; 70450; 71045; 80053; 83880; 84484; 85025; 96374; 96375; 99285; J1885; J2270; J2405; Q0092

== ENCOUNTER 2023-02-27 17:50 | Inpatient (IN) | payer OTHER ==
[~2023-02-27] VITALS: Ht 172.7 cm; Wt 113.4 kg
[~2023-02-27 17:50] MED LIST changes: +IBUP-2213 PO; -TOBR5SOL17 OP; +TOBR5SOL38 OP
[2023-02-27 18:30] VITALS: BP 147/81; PULSE 89; RESP 17; TEMP 97.6; O2SAT 96
[2023-02-27 19:47] LABS: BASOPHILS # (AUTO) 0.1 K/uL (0.00-0.22); BASOPHILS % (AUTO) 0.8 % (0.0-2.0); EOSINOPHILS # (AUTO) 0.1 K/uL (0-0.4); HEMATOCRIT 41.2 % (36-52); HEMOGLOBIN 14.1 g/dL (12.0-18.0); LYMPHOCYTES # (AUTO) 1.6 K/uL (2.0-11.5); LYMPHOCYTES % (AUTO) 13.7 % (20.5-51.1); MEAN CORPUSCULAR HEMOGLOBIN 30 pg (27-31); MEAN CORPUSCULAR HGB CONC 34 g/dL (33-37); MEAN CORPUSCULAR VOLUME 87.8 fL (80-94); MONOCYTES # (AUTO) 1.4 K/uL (0.8-1.0); MONOCYTES % (AUTO) 12.3 % (1.7-9.3); NEUTROPHILS # (AUTO) 8.5 K/uL (1.8-7.7); NEUTROPHILS % (AUTO) 72.2 % (42.2-75.2); PLATELET COUNT (AUTO) 268 K/uL (140-450); RED CELL DISTRIBUTION WIDTH 14.1 % (11.6-13.7); WHITE BLOOD COUNT (AUTO) 11.7 K/uL (4.8-10.8)
[2023-02-27 19:57] LABS: ALANINE AMINOTRANSFERASE 35 U/L (12-78); ALBUMIN 2.5 g/dL (3.4-5.0); ALKALINE PHOSPHATASE 70 U/L (50-136); ASPARTATE AMINOTRANSFERASE 34 U/L (15-37); CALCIUM 8.3 mg/dL (8.5-10.1); CARBON DIOXIDE 35.8 mmol/L (21-32); CHLORIDE 100 mmol/L (98-107); CREATININE 0.8 mg/dL (0.6-1.3); GLUCOSE 169 mg/dL (74-106); SODIUM SERUM 139 mmol/L (136-145); TOTAL BILIRUBIN 1.3 mg/dL (0.0-1.0); UREA NITROGEN, BLOOD 11 mg/dL (7-18)
[2023-02-27 19:59] LABS: POTASSIUM 2.8 mmol/L (3.5-5.1)
[2023-02-27] MEDS ORDERED: cefTRIAXone 1,000 MG in DEXT 5% MINI-BAG PLUS 50 ML IV ONE (20:30)
[2023-02-27] MEDS ORDERED: NACL 0.9% 1,000 ML IV SCH (20:30)
[2023-02-27] MEDS ORDERED: POTASSIUM CHLORIDE 10 MEQ TABER PO ONE (20:40)
[2023-02-27] MEDS ORDERED: ACETAMINOPHEN 325 MG TAB PO PRN (21:15)
[2023-02-27] MEDS: NACL 0.9% 1,000 ML IV SCH (21:15)
[2023-02-27] MEDS ORDERED: DOCUSATE SODIUM 100 MG GELCAP PO PRN (21:15)
[2023-02-27] MEDS ORDERED: HYDROcodone/APAP 7.5/325 MG 1 TAB PO PRN (21:15)
[2023-02-27] MEDS ORDERED: guaiFENesin DM 200/20 MG-10 ML 10 ML UDC PO PRN (21:15)
[2023-02-27] MEDS ORDERED: ONDANSETRON 4 MG/2 ML VIAL IM/IVP PRN (21:15)
[2023-02-27] MEDS ORDERED: ZOLPIDEM 5 MG TAB PO PRN (21:15)
[2023-02-27] MEDS ORDERED: POTASSIUM CHLORIDE 10 MEQ TABER PO PRN (21:15)
[2023-02-27] MEDS ORDERED: cefTRIAXone 1,000 MG VIAL ONE (22:38)
[2023-02-27 23:03] LABS: LACTIC ACID 1.2 mmol/L (0.4-2.0)
[2023-02-28 00:10] VITALS: O2SAT 96
[2023-02-28 03:45] VITALS: O2SAT 96
[2023-02-28 07:51] LABS: BASOPHILS % (AUTO) 0.4 % (0.0-2.0); EOSINOPHILS # (AUTO) 0.2 K/uL (0-0.4); EOSINOPHILS % (AUTO) 1.2 % (0.0-4.0); HEMATOCRIT 41.8 % (36-52); HEMOGLOBIN 13.9 g/dL (12.0-18.0); LYMPHOCYTES # (AUTO) 2.3 K/uL (2.0-11.5); LYMPHOCYTES % (AUTO) 17.9 % (20.5-51.1); MEAN CORPUSCULAR HEMOGLOBIN 30 pg (27-31); MEAN CORPUSCULAR HGB CONC 33 g/dL (33-37); MEAN CORPUSCULAR VOLUME 88.6 fL (80-94); MONOCYTES # (AUTO) 1.7 K/uL (0.8-1.0); MONOCYTES % (AUTO) 13.5 % (1.7-9.3); NEUTROPHILS # (AUTO) 8.4 K/uL (1.8-7.7); PLATELET COUNT (AUTO) 317 K/uL (140-450); RED BLOOD CELL COUNT(AUTO) 4.71 MIL/uL (4.20-6.10); WHITE BLOOD COUNT (AUTO) 12.5 K/uL (4.8-10.8)
[2023-02-28 08:09] LABS: ALANINE AMINOTRANSFERASE 33 U/L (12-78); ALBUMIN 2.5 g/dL (3.4-5.0); ALKALINE PHOSPHATASE 61 U/L (50-136); ANION GAP 7.8 (8-16); ASPARTATE AMINOTRANSFERASE 34 U/L (15-37); CALCIUM 8.3 mg/dL (8.5-10.1); CARBON DIOXIDE 33.3 mmol/L (21-32); CHLORIDE 103 mmol/L (98-107); CREATININE 0.8 mg/dL (0.6-1.3); GLUCOSE 135 mg/dL (74-106); POTASSIUM 3.1 mmol/L (3.5-5.1); SODIUM SERUM 141 mmol/L (136-145); TOTAL BILIRUBIN 1.2 mg/dL (0.0-1.0); UREA NITROGEN, BLOOD 8 mg/dL (7-18)
[2023-02-28] MEDS: PANTOPRAZOLE 40 MG TABEC PO SCH (08:32)
[2023-02-28] MEDS ORDERED: POTASSIUM CHLORIDE 10 MEQ TABER PO PRN (11:00)
[2023-02-28] MEDS ORDERED: MAG SULF 2000 MG/WATER PREMIX 50 ML IV PRN (11:00)
[2023-02-28] MEDS: LEVOFLOXACIN 500 MG/D5W PREMIX 100 ML IV SCH (13:35)
[2023-02-28 16:47] VITALS: PULSE 85; RESP 20; O2SAT 96
[2023-02-28 16:50] VITALS: BP 113/74; PULSE 85; PULSE 92; RESP 19; TEMP 98.1; O2SAT 98
[2023-02-28] MEDS: NACL 0.9% 1,000 ML IV SCH (18:02)
[2023-02-28 20:00] VITALS: BP 112/61; PULSE 77; RESP 18; TEMP 97.5; O2SAT 97
[2023-03-01] VITALS (7 sets, daily range): BP systolic 97–124; BP diastolic 55–72; PULSE 76–84; RESP 17–20; TEMP 97.2–97.8; O2SAT 97–98
[2023-03-01 05:55] LABS: BASOPHILS # (AUTO) 0.1 K/uL (0.00-0.22); BASOPHILS % (AUTO) 0.4 % (0.0-2.0); EOSINOPHILS # (AUTO) 0.2 K/uL (0-0.4); EOSINOPHILS % (AUTO) 1.8 % (0.0-4.0); HEMATOCRIT 39.9 % (36-52); HEMOGLOBIN 13.6 g/dL (12.0-18.0); LYMPHOCYTES # (AUTO) 2.3 K/uL (2.0-11.5); LYMPHOCYTES % (AUTO) 17.2 % (20.5-51.1); MEAN CORPUSCULAR HEMOGLOBIN 30 pg (27-31); MEAN CORPUSCULAR HGB CONC 34 g/dL (33-37); MEAN CORPUSCULAR VOLUME 87.5 fL (80-94); MONOCYTES # (AUTO) 1.4 K/uL (0.8-1.0); MONOCYTES % (AUTO) 10.5 % (1.7-9.3); NEUTROPHILS # (AUTO) 9.3 K/uL (1.8-7.7); NEUTROPHILS % (AUTO) 70.1 % (42.2-75.2); PLATELET COUNT (AUTO) 341 K/uL (140-450); RED BLOOD CELL COUNT(AUTO) 4.56 MIL/uL (4.20-6.10); RED CELL DISTRIBUTION WIDTH 14.1 % (11.6-13.7); WHITE BLOOD COUNT (AUTO) 13.2 K/uL (4.8-10.8)
[2023-03-01 06:01] LABS: MAGNESIUM 1.5 mg/dL (1.8-2.4); PHOSPHORUS 2.4 mg/dL (2.5-4.9)
[2023-03-01 06:09] LABS: ALANINE AMINOTRANSFERASE 30 U/L (12-78); ALBUMIN 2.4 g/dL (3.4-5.0); ALKALINE PHOSPHATASE 63 U/L (50-136); ANION GAP 11.5 (8-16); ASPARTATE AMINOTRANSFERASE 36 U/L (15-37); CALCIUM 8.4 mg/dL (8.5-10.1); CARBON DIOXIDE 27.3 mmol/L (21-32); CHLORIDE 105 mmol/L (98-107); CREATININE 0.6 mg/dL (0.6-1.3); GLUCOSE 113 mg/dL (74-106); POTASSIUM 3.8 mmol/L (3.5-5.1); SODIUM SERUM 140 mmol/L (136-145); TOTAL BILIRUBIN 1.3 mg/dL (0.0-1.0); TOTAL PROTEIN, SERUM 6.8 g/dL (6.4-8.2); UREA NITROGEN, BLOOD 7 mg/dL (7-18)
[2023-03-01] MEDS: NACL 0.9% 1,000 ML IV SCH (06:25)
[2023-03-01] MEDS ORDERED: MAG SULF 2000 MG/WATER PREMIX 50 ML IV ONE (07:45)
[2023-03-01] MEDS ORDERED: ASPIRIN 325 MG TAB PO SCH (09:00)
[2023-03-01] MEDS ORDERED: PARoxetine 20 MG TAB PO SCH (09:00)
[2023-03-01] MEDS ORDERED: ATORVASTATIN 80 MG TAB PO SCH (09:00)
[2023-03-01] MEDS ORDERED: LOSARTAN 25 MG TAB PO SCH (09:00)
[2023-03-01] MEDS: PANTOPRAZOLE 40 MG TABEC PO SCH (13:02)
[2023-03-01] MEDS: LEVOFLOXACIN 500 MG/D5W PREMIX 100 ML IV SCH (13:04)
[2023-03-01] MEDS ORDERED: DOXY-690 PO (14:12)
== END 2023-03-01 18:15 | disposition home or self-care (01) | DRG 727 ==
LOC: MED 17:50 → MMU 21:12 → MTU 02-28 15:59
PROVIDERS: ADMIT Student in an Organized Health Care Education/Training Program; ATTEND Student in an Organized Health Care Education/Training Program
DX: N45.1 Epididymitis (principal); E43 Unspecified severe protein-calorie malnutrition; G93.41 Metabolic encephalopathy; J18.9 Pneumonia, unspecified organism; I25.10 Atherosclerotic heart disease of native coronary artery without angina pectoris; E11.9 Type 2 diabetes mellitus without complications; E78.5 Hyperlipidemia, unspecified; E87.6 Hypokalemia; F32.9 Major depressive disorder, single episode, unspecified; I10 Essential (primary) hypertension; Z79.899 Other long term (current) drug therapy; Z86.73 Personal history of transient ischemic attack (TIA), and cerebral infarction without residual deficits; Z68.38 Body mass index [BMI] 38.0-38.9, adult
CPT/HCPCS: 36415; 71045; 76870; 80053; 83605; 83735; 83880; 84100; 84484; 85025; 87040; 87081; 93005; 96365; 99285; J0696; J1956; J3475